=== PATIENT | female | born 1985 | race Caucasian/White ===

== ENCOUNTER → 2019-09-06 | Outpatient (CLI) | payer BC ==
[~2019-09-06] MED LIST: LISD40CA3 PO; SERT50TA9 PO
--- NOTE | 2019-09-06 09:26 | Diagnostic Imaging Report ---
INDICATION: Fall with left ankle and lower left artery pain. Time of exam 9:03 AM 3 views of the left ankle were obtained. Alignment is normal. The ankle mortise is well maintained. Talar dome is smooth. No fracture or dislocation is seen. There is lateral soft tissue swelling. IMPRESSION: Lateral swelling. No acute bony abnormality is detected. Dictated by: Dictated on workstation # [id number]
--- NOTE | 2019-09-06 09:26 | Diagnostic Imaging Report ---
INDICATION: Fall with left leg pain. Time of exam 9:06 AM AP and lateral views of left tibia and fibula were obtained. Alignment at the knee and ankle is normal. Lateral ankle swelling is noted. No fractures are seen. IMPRESSION: No acute bony abnormality is detected. Dictated by: Dictated on workstation # [id number]
== END ==
LOC: RAD 08:44
PROVIDERS: ATTEND Nurse Practitioner Family
DX: M25.472 Effusion, left ankle (principal); M79.605 Pain in left leg; W19.XXXA Unspecified fall, initial encounter
CPT/HCPCS: 73590; 73610

== ENCOUNTER 2020-05-11 09:56 | Emergency (ER) | payer BC ==
[~2020-05-11] VITALS: Ht 170 cm; Wt 146.0 kg
--- NOTE | 2020-05-11 10:05 | ED General ---
General Stated Complaint: SOA;CP Source of Information: Patient Exam Limitations: No Limitations History of Present Illness Date Seen by Provider: May 11, 2020 Time Seen by Provider: 10:10 Initial Comments 35-year-old female presents with left-sided chest pain. She reports that started last week. That she fell over off over the weekend. That the chest pain gets worse with deep breath. That a little bit of discomfort in her neck and her left shoulder. She denies any cough or fever. Maybe some minor shortness of breath. She has no known exposure to COVID. She does not have any nausea or vomiting. She does have a significant family history of early cardiac disease Allergies and Home Medications Allergies Coded Allergies: amoxicillin (Verified Allergy, Unknown, RASH, 11/11/16) Home Medications Lisdexamfetamine Dimesylate 40 Mg Capsule, 40 MG PO DAILY, (Reported) Sertraline HCl 50 Mg Tablet, 50 MG PO DAILY, (Reported) Patient Home Medication List Home Medication List Reviewed: Yes Review of Systems Review of Systems Constitutional: No chills, No dizziness, No fever, No weakness EENTM: no symptoms reported Respiratory: see HPI; No cough Cardiovascular: see HPI, chest pain; No edema, No palpitations Musculoskeletal: no symptoms reported Skin: no symptoms reported Psychiatric/Neurological: No Symptoms Reported Hematologic/Lymphatic: No Symptoms Reported Past Tzuluci-Yihuly-Kqmevx Hx Past Med/Social Hx: Reviewed Nursing Past Med/Soc Hx Patient Social History Former Smoker, Quit: Nov 11, 2006 Recent Hopitalizations: No Seasonal Allergies Seasonal Allergies: Yes Past Medical History ADD/ADHD Family Medical History Heart Disease Physical Exam Vital Signs Vital Signs - First Documented 05/11/20 10:00 Temp 36.7 Pulse 103 Resp 25 B/P (MAP) 146/86 (106) Pulse Ox 98 O2 Delivery Room Air Capillary Refill : Height, Weight, BMI Height: 5'7.00" Weight: 239lbs. 0.0oz. 108.014676ld; 37.4 BMI Method:Stated General Appearance: No Apparent Distress, WD/WN Neck: Non Tender, Supple Respiratory: Lungs Clear, Normal Breath Sounds Cardiovascular: Regular Rate, Rhythm, Tachycardia (mild tachycardia) Gastrointestinal: Non Tender, Soft Extremity: Normal Capillary Refill, Normal Range of Motion Neurologic/Psychiatric: Alert, Oriented x3, Normal Mood/Affect, mental health practitioner II-XII Norm as Tested Skin: Normal Color, Warm/Dry Progress/Results/Core Measures Suspected Sepsis SIRS Temperature: Pulse: Respiratory Rate: Laboratory Tests 05/11/20 10:30: White Blood Count 7.2 Blood Pressure / Mean: Laboratory Tests 05/11/20 10:30: Creatinine 0.80, INR Comment 0.9, Platelet Count 214, Total Bilirubin 0.4 Results/Orders Lab Results Laboratory Tests Test 05/11/20 10:30 Range/Units White Blood Count 7.2 4.3-11.0 10^3/uL Red Blood Count 4.67 4.35-5.85 10^6/uL Hemoglobin 13.0 11.5-16.0 G/DL Hematocrit 39 35-52 % Mean Corpuscular Volume 83 80-99 FL Mean Corpuscular Hemoglobin 28 25-34 PG Mean Corpuscular Hemoglobin Concent 34 32-36 G/DL Red Cell Distribution Width 13.7 10.0-14.5 % Platelet Count 214 130-400 10^3/uL Mean Platelet Volume 10.0 7.4-10.4 FL Neutrophils (%) (Auto) 64 42-75 % Lymphocytes (%) (Auto) 26 12-44 % Monocytes (%) (Auto) 7 0-12 % Eosinophils (%) (Auto) 2 0-10 % Basophils (%) (Auto) 0 0-10 % Neutrophils # (Auto) 4.7 1.8-7.8 X 10^3 Lymphocytes # (Auto) 1.9 1.0-4.0 X 10^3 Monocytes # (Auto) 0.5 0.0-1.0 X 10^3 Eosinophils # (Auto) 0.2 0.0-0.3 10^3/uL Basophils # (Auto) 0.0 0.0-0.1 10^3/uL Prothrombin Time 12.3 12.2-14.7 SEC INR Comment 0.9 0.8-1.4 Activated Partial Thromboplast Time 23 L 24-35 SEC D-Dimer 0.34 0.00-0.49 UG/ML Sodium Level 136 135-145 MMOL/L Potassium Level 4.1 3.6-5.0 MMOL/L Chloride Level 104 98-107 MMOL/L Carbon Dioxide Level 23 21-32 MMOL/L Anion Gap 9 5-14 MMOL/L Blood Urea Nitrogen 11 7-18 MG/DL Creatinine 0.80 0.60-1.30 MG/DL Estimat Glomerular Filtration Rate > 60 BUN/Creatinine Ratio 14 Glucose Level 93 70-105 MG/DL Calcium Level 8.6 8.5-10.1 MG/DL Corrected Calcium 8.4 L 8.5-10.1 MG/DL Magnesium Level 2.0 1.6-2.4 MG/DL Total Bilirubin 0.4 0.1-1.0 MG/DL Aspartate Amino Transf (AST/SGOT) 18 5-34 U/L Alanine Aminotransferase (ALT/SGPT) 23 0-55 U/L Alkaline Phosphatase 86 40-136 U/L Myoglobin 18.9 10.0-92.0 NG/ML Troponin I < 0.028 <0.028 NG/ML B-Type Natriuretic Peptide 15.3 <100.0 PG/ML Total Protein 7.9 6.4-8.2 GM/DL Albumin 4.3 3.2-4.5 GM/DL My Orders Orders - PARHAM,DANNA L DO Cbc With Automated Diff (05/11/20 10:25) Magnesium (05/11/20 10:25) Chest 1 View, Ap/Pa Only (05/11/20 10:25) Ekg Tracing (05/11/20 10:25) Comprehensive Metabolic Panel (05/11/20 10:25) Myoglobin Serum (05/11/20 10:25) Protime With Inr (05/11/20 10:25) Partial Thromboplastin Time (05/11/20 10:25) O2 (05/11/20 10:25) Monitor-Rhythm Ecg Trace Only (05/11/20 10:25) Ed Iv/Invasive Line Start (05/11/20 10:25) BNP (05/11/20 10:25) Troponin I (05/11/20 10:25) Aspirin Chewable Tablet (Baby Aspirin Ch (05/11/20 10:30) Fibrin Degradation Products (05/11/20 10:30) Medications Given in ED Current Medications Medications Dose Ordered Sig/Geo Route Start Time Stop Time Status Last Admin Dose Admin Aspirin 324 mg ONCE ONCE PO 05/11/20 10:30 05/11/20 10:31 DC 05/11/20 11:22 324 MG Vital Signs/I&O 6/05/11/20 05/11/20 05/11/20 10:00 10:00 10:30 11:00 Temp 36.7 Pulse 103 90 94 Resp 25 18 19 B/P (MAP) 146/86 (106) 134/84 (101) 131/77 (95) Pulse Ox 98 99 O2 Delivery Room Air 05/11/20 05/11/20 05/11/20 12:00 12:15 12:25 Pulse 83 89 89 Resp 18 B/P (MAP) 147/94 (111) 134/87 (103) 134/87 (106) Pulse Ox 99 99 98 O2 Delivery Room Air Capillary Refill : Progress Note : Progress Note Patient with no acute findings on EKG, x-rays or labs. Patient chest pain is been there for at least 3 days with negative EKG and negative troponins a very unlikely it is cardiac in nature. It does seem very pleuritic in nature with worsening of deep breath. I discussed her use of ibuprofen with possible some underlying viral illness. She should return to the ER if symptoms significantly worsen or follow-up with her primary care provider in 3-4 days if no improvement. Patient is discharged home in stable condition. ECG Initial ECG Impression Date: May 11, 2020 Initial ECG Impression Time: 10:38 Initial ECG Rate: 101 Initial ECG Rhythm: S.Tach Initial ECG Intervals: Normal Initial ECG Impression: Normal Departure Impression Primary Impression: Chest pain, pleuritic Disposition: 01 HOME, SELF-CARE Condition: Stable Departure-Patient Inst. Referrals: JOAN CATES DO (PCP/Family) Primary Care Physician Patient Instructions: Chest Pain, Chest Pain That Is Not Caused by the Heart (DC), Pleuritic Chest Pain Add. Discharge Instructions: Ibuprofen 600- 800 mg every 6 hours as needed Follow-up with your primary care provider if no improvement in the next 3-4 days. Return the ER if symptoms significantly worsen DANNA PARHAM DO May 11, 2020 10:05
[2020-05-11 10:30] VITALS: BP 134/84
[2020-05-11] MEDS ORDERED: ASPIRIN 81 MG CHEW (CHILDREN'S ASA) PO ONE (10:30)
[2020-05-11 10:44] LABS: BASOPHILS % (AUTO) 0 % (0-10); EOSINOPHILS # (AUTO) 0.2 10^3/uL (0.0-0.3); EOSINOPHILS % (AUTO) 2 % (0-10); HEMATOCRIT 39 % (35-52); LYMPHOCYTES # (AUTO) 1.9 X 10^3 (1.0-4.0); LYMPHOCYTES % (AUTO) 26 % (12-44); MEAN CORPUSCULAR HEMOGLOBIN 28 PG (25-34); MEAN CORPUSCULAR HGB CONC 34 G/DL (32-36); MEAN CORPUSCULAR VOLUME 83 FL (80-99); MONOCYTES # (AUTO) 0.5 X 10^3 (0.0-1.0); MONOCYTES % (AUTO) 7 % (0-12); NEUTROPHILS # (AUTO) 4.7 X 10^3 (1.8-7.8); NEUTROPHILS % (AUTO) 64 % (42-75); PLATELET COUNT 214 10^3/uL (130-400); RED CELL DISTRIBUTION WIDTH 13.7 % (10.0-14.5); WHITE BLOOD COUNT 7.2 10^3/uL (4.3-11.0)
[2020-05-11 10:56] LABS: ALBUMIN 4.3 GM/DL (3.2-4.5); CHLORIDE 104 MMOL/L (98-107); POTASSIUM 4.1 MMOL/L (3.6-5.0); SODIUM 136 MMOL/L (135-145)
[2020-05-11 10:58] LABS: CALCIUM 8.6 MG/DL (8.5-10.1)
[2020-05-11 10:59] LABS: GLUCOSE 93 MG/DL (70-105); TOTAL PROTEIN 7.9 GM/DL (6.4-8.2)
[2020-05-11 11:00] VITALS: BP 131/77
[2020-05-11 11:00] LABS: CARBON DIOXIDE 23 MMOL/L (21-32)
[2020-05-11 11:01] LABS: BILIRUBIN,TOTAL 0.4 MG/DL (0.1-1.0); FIBRIN DEGRADATION PRODUCTS 0.34 UG/ML (0.00-0.49); INR 0.9 (0.8-1.4); PROTHROMBIN TIME PATIENT 12.3 SEC (12.2-14.7)
[2020-05-11 11:02] LABS: ALKALINE PHOSPHATASE 86 U/L (40-136); GFR ESTIMATED > 60
[2020-05-11 11:04] LABS: BUN/CREATININE RATIO 14
[2020-05-11 11:05] LABS: ALANINE AMINOTRANSFERASE 23 U/L (0-55)
[2020-05-11 12:00] VITALS: BP 147/94
--- NOTE | 2020-05-11 12:14 | Diagnostic Imaging Report ---
EXAMINATION: Chest, 1 view. HISTORY: Shortness of breath. COMPARISON: None available. FINDINGS: The right hemidiaphragm is elevated. There is mild right base atelectasis. There is no pleural effusion or pneumothorax. The heart size is normal. IMPRESSION: Elevated right hemidiaphragm with mild right base atelectasis. Dictated by: Dictated on workstation # [id number]
[2020-05-11 12:15] VITALS: BP 134/87
[2020-05-11 12:25] VITALS: BP 134/87
== END 2020-05-11 12:15 | disposition home or self-care (01) ==
LOC: EDUNIT# 09:56 → ER 09:58
DX: R07.2 Precordial pain (principal); F90.9 Attention-deficit hyperactivity disorder, unspecified type; Z88.1 Allergy status to other antibiotic agents; Z87.891 Personal history of nicotine dependence; Z82.49 Family history of ischemic heart disease and other diseases of the circulatory system
CPT/HCPCS: 36415; 71045; 80053; 83735; 83874; 83880; 84484; 85025; 85379; 85610; 85730; 93005; 93041

== ENCOUNTER → 2020-08-21 | Outpatient (CLI) | payer BC ==
[~2020-08-21] MED LIST changes: +BARIUM for suspension 96% w/w (Vanilla Silq Medium Density) PO ONE; +BARIUM for suspension 98% w/w (Vanilla Silq High Density) PO ONE
--- NOTE | 2020-08-21 12:02 | Diagnostic Imaging Report ---
INDICATION: Dysphagia. Patient ingested effervescent crystals as well as thin and thick barium and imaging of esophagus was performed. A total of 53 seconds of fluoroscopic time was utilized. The preliminary radiograph of the chest is unremarkable. The esophagus has a smooth contour. No mass or stricture is identified. No hiatal hernia is identified. There was very mild gastroesophageal reflux demonstrated. Limited images of the stomach are unremarkable. IMPRESSION: Unremarkable esophagram apart from very mild gastroesophageal reflux. Dictated by: Dictated on workstation # [id number]
== END ==
LOC: RAD 11:00
PROVIDERS: ATTEND Surgery
DX: R13.10 Dysphagia, unspecified (principal)
CPT/HCPCS: 74220

== ENCOUNTER → 2020-08-28 | Outpatient (CLI) | payer BC ==
[~2020-08-28] MED LIST changes: -BARIUM for suspension 96% w/w (Vanilla Silq Medium Density) PO ONE; -BARIUM for suspension 98% w/w (Vanilla Silq High Density) PO ONE
== END ==
LOC: LABNPT 09:04
PROVIDERS: ATTEND Family Medicine
DX: J06.9 Acute upper respiratory infection, unspecified (principal); Z20.828 Contact with and (suspected) exposure to other viral communicable diseases
CPT/HCPCS: 87635

== ENCOUNTER 2020-09-11 05:35 | Outpatient (RCR) | payer BC ==
[~2020-09-11] VITALS: Ht 172.7 cm; Wt 154.5 kg
[~2020-09-11 05:35] MED LIST changes: +PANT40TA52 PO
== END 2020-09-11 13:04 | disposition home or self-care (01) ==
LOC: PREOP 05:35
PROVIDERS: ATTEND Surgery
DX: K21.9 Gastro-esophageal reflux disease without esophagitis (principal); Z20.828 Contact with and (suspected) exposure to other viral communicable diseases
CPT/HCPCS: 87635

== ENCOUNTER 2020-09-15 09:17 | Day surgery (SDC) | payer BC ==
[~2020-09-15] VITALS: Ht 172 cm; Wt 154.0 kg
[2020-09-15] MEDS ORDERED: LACTATED RINGERS 1,000 ML IV STA (09:18)
[2020-09-15] MEDS ORDERED: LACTATED RINGERS 1,000 ML IV ONE (09:19)
[2020-09-15] MEDS ORDERED: HURRICAINE EXT TUBE (BENZOCAINE) XX PRN (09:30)
[2020-09-15 09:36] VITALS: BP 155/95
--- NOTE | 2020-09-15 09:54 | Progress Note-Pre Operative ---
Pre-Operative Progress Note H&P Reviewed The H&P was reviewed, patient examined and no changes noted. Date Seen by Provider: Sep 15, 2020 Time Seen by Provider: 09:54 Date H&P Reviewed: Sep 15, 2020 Time H&P Reviewed: 09:54 Pre-Operative Diagnosis: dysphagia, gerd MARY ESTRELLA DO Sep 15, 2020 09:54
[2020-09-15] MEDS ORDERED: proPOfol 200 MG/20 ML (DIPRIVAN) VIAL IV ONE ×2 (10:23→10:37)
[2020-09-15] MEDS ORDERED: MIDAZOLAM 2 MG/2 ML (VERSED) VIAL ONE (10:23)
[2020-09-15] MEDS ORDERED: HURRICAINE EXT TUBE (BENZOCAINE) ONE (10:33)
[2020-09-15 10:45] VITALS: BP 104/56
--- NOTE | 2020-09-15 10:45 | Discharge Inst-Simple/Standard ---
Discharge Inst-Standard Patient Instructions/Follow Up Plan of Care/Instructions/FU: 2 weeks Pooja Activity as Tolerated: Yes Discharge Diet: Regular Diet MARY ESTRELLA DO Sep 15, 2020 10:45
--- NOTE | 2020-09-15 10:49 | Progress Note-Post Operative ---
Post-Operative Progess Note Surgeon (s)/Radial Arm Saw Operator (s) Surgeon MARY ESTRELLA DO Radial Arm Saw Operator: na Pre-Operative Diagnosis dysphagia, gerd Post-Operative Diagnosis mild reflux esophagitis Procedure & Operative Findings Date of Procedure 09/15/20 Procedure Performed/Findings egd c biopsies Anesthesia Type per military technology manager Estimated Blood Loss Estimated blood loss (mL): scant Specimens/Packing Specimens Removed antrum, ge MARY ESTRELLA DO Sep 15, 2020 10:49
[2020-09-15 10:50] VITALS: BP 104/62
[2020-09-15 10:54] VITALS: BP 105/59
[2020-09-15 10:55] VITALS: BP 105/65
[2020-09-15 11:16] VITALS: BP 107/73
--- NOTE | 2020-09-15 19:10 | OPERATIVE REPORT ---
DATE OF SERVICE: 09/15/2020 PREOPERATIVE DIAGNOSES: Dysphagia and GERD. POSTOPERATIVE DIAGNOSIS: Mild reflux esophagitis. PROCEDURE PERFORMED: EGD with biopsies. SURGEON: Mary Patton DO ANESTHESIA: Per INVENTORY CONTROL MANAGER. ESTIMATED BLOOD LOSS: Scant. COMPLICATIONS: None. SPECIMENS: Biopsy of the antrum and GE junction. INDICATIONS FOR PROCEDURE: The patient is a 35-year-old female with GERD symptoms and dysphagia. She understands the risks and benefits of the procedure and wished to proceed with the procedure. Consent was signed in the chart. DESCRIPTION OF PROCEDURE: The patient was taken to the endoscopy suite and placed in a left lateral recumbent position. Timeout was performed. Scope was inserted in the mouth, down the esophagus, stomach and into the duodenum without difficulty. There were no polyps, masses or ulcerations within the duodenum. Scope was slowly retracted back into the stomach, where it was further insufflated. No polyps, masses or ulcerations. Scope was retroflexed noting no other pathology. Biopsy of the antrum was obtained. Scope was then slowly retracted back to the distal esophagus. No polyps, masses or ulcerations. some slight erythematous changes consistent with mild reflux esophagitis. Biopsies of the GE junction were obtained. Scope was then slowly retracted back until completely removed. The patient tolerated procedure well without any complications. She was taken to the recovery room in a stable condition. RECOMMENDATIONS: The patient will follow up in the office in two to three weeks. Await biopsy results. Continue on current medications. Job ID: [id number] DocumentID: [id number] Dictated Date: 09/15/2020 10:50:54 Yardage Estimator Date: 09/15/2020 19:09:14 Dictated By: MARY PATTON DO
--- NOTE | 2020-09-16 12:54 | Anesthesia-General Post-Op ---
MAC Significant Intra-Op Events Notes Post op yesterday no complications Patient Condition Mental Status/LOC: Same as Preop Cardiovascular: Satisfactory Nausea/Vomiting: Absent Respiratory: Satisfactory Pain: Controlled Complications: Absent Post Op Complications Complications None Follow Up Care/Instructions Patient Instructions None needed. Anesthesiology Discharge Order Discharge Order Patient is doing well, no complaints, stable vital signs, no apparent adverse anesthesia problems. No complications reported per nursing. BOWEN RIVERA CRNA Sep 16, 2020 12:54
== END 2020-09-15 11:25 | disposition home or self-care (01) ==
LOC: ENDO 09:17
PROVIDERS: ATTEND Surgery
DX: K21.00 Gastro-esophageal reflux disease with esophagitis, without bleeding (principal); E66.01 Morbid (severe) obesity due to excess calories; Z79.899 Other long term (current) drug therapy; Z68.43 Body mass index [BMI] 50.0-59.9, adult; Z88.0 Allergy status to penicillin; Z88.1 Allergy status to other antibiotic agents

== ENCOUNTER → 2020-12-08 | Outpatient (CLI) | payer BC ==
--- NOTE | 2020-12-09 09:34 | NUR ---
Notified of positive COVID test.
== END ==
LOC: LABNPT 05:21
PROVIDERS: ATTEND Family Medicine
DX: U07.1 COVID-19 (principal)
CPT/HCPCS: 87635

== ENCOUNTER 2020-12-11 15:18 | Inpatient (IN) | payer BC, OTHER ==
[~2020-12-11] VITALS: Ht 170 cm; Wt 154.6 kg
[~2020-12-11 15:18] MED LIST changes: -ACET325T38 PO; -BAMLANIVIMAB (NON FORM) 700 MG in NS (IVPB) 250 ML IV ONE; -EPINEPHrine INJECTION 1 MG/ML AMP IM PRN; -PRD20T PO; -RT-ALBUINH INH; -diphenhydrAMINE 50 MG/ML INJ (BENADRYL) IV PRN
--- NOTE | 2020-12-11 15:28 | ED Cough/URI ---
General Chief Complaint: Respiratory Problems Stated Complaint: COVID POSITIVE, HYPOXIA Source: patient Exam Limitations: no limitations History of Present Illness Date Seen by Provider: Dec 11, 2020 Time Seen by Provider: 15:23 Initial Comments To ER from outpatient surgery center with reports of hypoxia and dyspnea while receiving Bamlanivimab infusion. She is on day 10 of Covid illness with a BMI of 53. On arrival to ER oxygen saturation varies between 89 and 87% on room air. Timing/Duration: just prior to arrival Prior Episodes/Possible Cause: no prior episodes Associated Symptoms: denies symptoms Allergies and Home Medications Allergies Coded Allergies: amoxicillin (Verified Allergy, Unknown, RASH, 11/11/16) Home Medications Lisdexamfetamine Dimesylate 40 Mg Capsule, 40 MG PO DAILY, (Reported) Pantoprazole Sodium 40 Mg Tablet.dr, 40 MG PO DAILY, (Reported) Patient Home Medication List Home Medication List Reviewed: Yes Review of Systems Review of Systems Constitutional: see HPI; No chills, No fever EENTM: see HPI Respiratory: see HPI, cough, short of breath Cardiovascular: no symptoms reported Genitourinary: no symptoms reported Musculoskeletal: no symptoms reported Skin: no symptoms reported Psychiatric/Neurological: No Symptoms Reported Hematologic/Lymphatic: No Symptoms Reported Past Kpkbgwe-Nmilyq-Auhcru Hx Patient Social History Former Smoker, Quit: Nov 11, 2006 Recent Hopitalizations: No Immunizations Up To Date PED Vaccines UTD: No Seasonal Allergies Seasonal Allergies: Yes Past Medical History Surgeries: No Respiratory: No Cardiac: No Neurological: No Genitourinary: No Gastrointestinal: Yes (dysphagia) Gastroesophageal Reflux Musculoskeletal: No Endocrine: No HEENT: No Cancer: No Psychosocial: Yes ADD/ADHD Integumentary: No Blood Disorders: No Family Medical History Heart Disease Physical Exam Vital Signs - First Documented 12/11/20 15:22 Temp 38.3 Pulse 100 Resp 18 B/P (MAP) 133/89 (104) Pulse Ox 89 O2 Delivery Room Air Capillary Refill : Height: 5'7.00" Weight: 239lbs. 0.0oz. 108.455559ak; 52.05 BMI Method:Stated General Appearance: WD/WN, no apparent distress, obese Eyes: Bilateral Eye Normal Inspection, Bilateral Eye PERRL, Bilateral Eye EOMI Neck: non-tender, full range of motion Respiratory: normal breath sounds, no respiratory distress, no accessory muscle use Gastrointestinal: normal bowel sounds, non tender, soft Neurologic/Psychiatric: alert, normal mood/affect, oriented x 3 Skin: normal color, warm/dry Progress/Results/Core Measures Suspected Sepsis SIRS Temperature: Pulse: Respiratory Rate: Laboratory Tests 12/11/20 15:20: White Blood Count 5.6 Blood Pressure / Mean: Laboratory Tests 12/11/20 15:20: Creatinine 0.81, Platelet Count 154, Total Bilirubin 0.4 Results/Orders Lab Results Laboratory Tests Test 12/11/20 15:20 Range/Units White Blood Count 5.6 4.3-11.0 10^3/uL Red Blood Count 4.59 3.80-5.11 10^6/uL Hemoglobin 12.8 11.5-16.0 g/dL Hematocrit 38 35-52 % Mean Corpuscular Volume 83 80-99 fL Mean Corpuscular Hemoglobin 28 25-34 pg Mean Corpuscular Hemoglobin Concent 34 32-36 g/dL Red Cell Distribution Width 12.4 10.0-14.5 % Platelet Count 154 130-400 10^3/uL Mean Platelet Volume 10.4 9.0-12.2 fL Immature Granulocyte % (Auto) 0 % Neutrophils (%) (Auto) 74 42-75 % Lymphocytes (%) (Auto) 19 12-44 % Monocytes (%) (Auto) 7 0-12 % Eosinophils (%) (Auto) 0 0-10 % Basophils (%) (Auto) 0 0-10 % Neutrophils # (Auto) 4.2 1.8-7.8 10^3/uL Lymphocytes # (Auto) 1.1 1.0-4.0 10^3/uL Monocytes # (Auto) 0.4 0.0-1.0 10^3/uL Eosinophils # (Auto) 0.0 0.0-0.3 10^3/uL Basophils # (Auto) 0.0 0.0-0.1 10^3/uL Immature Granulocyte # (Auto) 0.0 0.0-0.1 10^3/uL D-Dimer 0.67 H 0.00-0.49 UG/ML Sodium Level 141 135-145 MMOL/L Potassium Level 3.3 L 3.6-5.0 MMOL/L Chloride Level 105 98-107 MMOL/L Carbon Dioxide Level 23 21-32 MMOL/L Anion Gap 13 5-14 MMOL/L Blood Urea Nitrogen 12 7-18 MG/DL Creatinine 0.81 0.60-1.30 MG/DL Estimat Glomerular Filtration Rate > 60 BUN/Creatinine Ratio 15 Glucose Level 95 70-105 MG/DL Calcium Level 9.2 8.5-10.1 MG/DL Corrected Calcium 9.0 8.5-10.1 MG/DL Total Bilirubin 0.4 0.1-1.0 MG/DL Aspartate Amino Transf (AST/SGOT) 20 5-34 U/L Alanine Aminotransferase (ALT/SGPT) 20 0-55 U/L Alkaline Phosphatase 51 40-136 U/L C-Reactive Protein High Sensitivity 4.43 H 0.00-0.50 MG/DL Total Protein 8.3 H 6.4-8.2 GM/DL Albumin 4.3 3.2-4.5 GM/DL Procalcitonin 0.02 <0.10 NG/ML Serum Test, Qualitative NEGATIVE NEGATIVE My Orders Orders - JANNIE GALDAMEZ APRN Cbc With Automated Diff (12/11/20 15:21) Comprehensive Metabolic Panel (12/11/20 15:21) Hs C Reactive Protein (12/11/20 15:21) Fibrin Degradation Products (12/11/20 15:21) Chest 1 View, Ap/Pa Only (12/11/20 15:21) Procalcitonin (Pct) (12/11/20 15:21) Ed Iv/Invasive Line Start (12/11/20 15:21) Hcg,Qualitative Serum (12/11/20 15:22) Ct Angio Chest W (12/11/20 16:05) Iohexol Injection (Omnipaque 350 Mg/Ml 1 (12/11/20 16:15) Received Contrast (Hold Metformin- Contr (12/11/20 16:15) Sodium Chloride Flush (Catheter Flush Sy (12/11/20 16:15) Ns (Ivpb) (Sodium Chloride 0.9% Ivpb Bag (12/11/20 16:15) Vital Signs/I&O 12/11/20 15:22 Temp 38.3 Pulse 100 Resp 18 B/P (MAP) 133/89 (104) Pulse Ox 89 O2 Delivery Room Air Capillary Refill : Departure Communication (Admissions) Time/Spoke to Admitting Phy: 16:27 Oxygen saturation 87 to 89% on room air here. It increases to 97 to 99% on only 2 L of supplemental oxygen. Impression Primary Impression: Hypoxia Additional Impression: COVID-19 Disposition: 09 ADMITTED INPATIENT Condition: Stable Admissions Decision to Admit Reason: Admit from ER (General) Decision to Admit/Date: Dec 11, 2020 Time/Decision to Admit Time: 16:27 Departure-Patient Inst. Referrals: JOAN CATES DO (PCP/Family) Primary Care Physician JANNIE GALDAMEZ APRN Dec 11, 2020 15:28
--- NOTE | 2020-12-11 15:39 | Diagnostic Imaging Report ---
EXAMINATION: Chest 1 view HISTORY: Hypoxia, COVID positive. COMPARISON: Chest radiograph from 05/11/2020. FINDINGS: Heart size and pulmonary vasculature are normal. Low lung volumes with patchy interstitial opacities seen within both lungs. No pleural effusion or pneumothorax. The osseous structures are intact. IMPRESSION: 1. Patchy interstitial opacities and low lung volumes, compatible with atypical infection and history of COVID-19. Dictated by: Dictated on workstation # [id number]
[2020-12-11 15:43] LABS: BASOPHILS % (AUTO) 0 % (0-10); EOSINOPHILS % (AUTO) 0 % (0-10); HEMATOCRIT 38 % (35-52); HEMOGLOBIN 12.8 g/dL (11.5-16.0); LYMPHOCYTES # (AUTO) 1.1 10^3/uL (1.0-4.0); LYMPHOCYTES % (AUTO) 19 % (12-44); MEAN CORPUSCULAR HEMOGLOBIN 28 pg (25-34); MEAN CORPUSCULAR HGB CONC 34 g/dL (32-36); MEAN CORPUSCULAR VOLUME 83 fL (80-99); MEAN PLATELET VOLUME 10.4 fL (9.0-12.2); MONOCYTES # (AUTO) 0.4 10^3/uL (0.0-1.0); MONOCYTES % (AUTO) 7 % (0-12); NEUTROPHILS # (AUTO) 4.2 10^3/uL (1.8-7.8); NEUTROPHILS % (AUTO) 74 % (42-75); PLATELET COUNT 154 10^3/uL (130-400); WHITE BLOOD COUNT 5.6 10^3/uL (4.3-11.0)
[2020-12-11 15:53] LABS: ALBUMIN 4.3 GM/DL (3.2-4.5); CHLORIDE 105 MMOL/L (98-107); POTASSIUM 3.3 MMOL/L (3.6-5.0); SODIUM 141 MMOL/L (135-145)
[2020-12-11 15:54] LABS: CALCIUM 9.2 MG/DL (8.5-10.1)
[2020-12-11 15:55] LABS: GLUCOSE 95 MG/DL (70-105); TOTAL PROTEIN 8.3 GM/DL (6.4-8.2)
[2020-12-11 15:57] LABS: BILIRUBIN,TOTAL 0.4 MG/DL (0.1-1.0); CARBON DIOXIDE 23 MMOL/L (21-32)
[2020-12-11 15:59] LABS: ALKALINE PHOSPHATASE 51 U/L (40-136); CREATININE SERUM 0.81 MG/DL (0.60-1.30); GFR ESTIMATED > 60
[2020-12-11 16:00] LABS: BUN/CREATININE RATIO 15
[2020-12-11 16:02] LABS: ALANINE AMINOTRANSFERASE 20 U/L (0-55)
[2020-12-11] MEDS ORDERED: IOHEXOL 350 MG/ML 100 ML (OMNIPAQUE 350) VIAL IV ONE (16:15)
[2020-12-11] MEDS ORDERED: CATHETER FLUSH 10 ML SYR IV PRN ×2 (16:15→18:45)
[2020-12-11] MEDS ORDERED: NS 100 ML (IVPB) BAG IV ONE (16:15)
[2020-12-11] MEDS ORDERED: HOLD METFORMIN - RECEIVED CONTRAST 20 ML VIAL IV SCH (16:15)
--- NOTE | 2020-12-11 16:48 | Diagnostic Imaging Report ---
EXAMINATION: CT angiography of the chest. TECHNIQUE: Contrast enhanced thin section helical images were obtained through the chest with intravenous contrast timed for the optimal opacification of the arterial structures per CTA protocol. Post-processing, reconstructions and interpretation of angiographic images of the vessels was performed. 3D MIP reconstructions were performed and reviewed. All CT scans use one or more of the following dose optimizing techniques: automated exposure control, MA and/or KvP adjustment based on a patient size and exam type, or iterative reconstruction. HISTORY: Shortness of breath, COVID positive. COMPARISON: None available. FINDINGS: Vascular: No filling defects within the pulmonary arteries. Thoracic aorta is normal in caliber. Thyroid: The thyroid is normal. Mediastinum: Heart size is normal without significant pericardial effusion. No suspicious lymphadenopathy. Lungs and airways: Patchy groundglass opacities throughout both lungs. No pleural effusion or pneumothorax. The airways are normal. Upper abdomen: The subphrenic structures are normal. Musculoskeletal: No suspicious osseous lesion or compression fracture. IMPRESSION: 1. No findings of pulmonary embolus. 2. Patchy groundglass opacities throughout both lungs compatible with history of COVID-19 pneumonia. Dictated by: Dictated on workstation # [id number]
[2020-12-11 18:21] VITALS: BP 132/78
[2020-12-11] MEDS ORDERED: polyethylene glycoL POWDER 17 GM (MIRALAX) PACK PO PRN (18:30)
[2020-12-11] MEDS ORDERED: ANTACID SUSP 30 ML UDC (MYLANTA) PO PRN (18:30)
[2020-12-11] MEDS ORDERED: ONDANSETRON 4 MG (ZOFRAN) ORAL DISSOLVE TAB PO PRN (18:30)
[2020-12-11] MEDS: ACETAMINOPHEN 325 MG TABLET PO PRN (18:41)
[2020-12-11] MEDS: ENOXAPARIN 60 MG/0.6 ML (LOVENOX) SYR SC SCH (20:37)
[2020-12-11] MEDS: CATHETER FLUSH 10 ML SYR IV SCH (20:38)
[2020-12-11 20:55] VITALS: BP 162/80
[2020-12-11] MEDS ORDERED: inSUlin ASPART (NovoLOG) 1 UNIT/0.01 ML (CHARGE PER UNIT) SC SCH (21:00)
[2020-12-11] MEDS: SENNOSIDES 8.6 MG (SENOKOT) TAB PO SCH (21:27)
[2020-12-11] MEDS: DOCUSATE SODIUM 100 MG (COLACE) CAP PO SCH (21:27)
[2020-12-11] MEDS: inSUlin ASPART (NovoLOG) 1 UNIT/0.01 ML (CHARGE PER UNIT) SC SCH (21:27)
[2020-12-11 21:52] VITALS: BP 133/89
[2020-12-11 21:59] VITALS: BP 133/89
[2020-12-11] MEDS ORDERED: RT-ALBUTEROL INHALER HFA (VENTOLIN HFA) 18 GM IH PRN (23:30)
[2020-12-11 23:54] VITALS: BP 158/78
[2020-12-12 03:06] VITALS: BP 128/68
[2020-12-12] MEDS: ONDANSETRON 4 MG/2 ML (SDV) Z0FRAN IV PRN (05:13)
[2020-12-12] MEDS: CATHETER FLUSH 10 ML SYR IV SCH ×3 (05:38→22:10)
[2020-12-12] MEDS: inSUlin ASPART (NovoLOG) 1 UNIT/0.01 ML (CHARGE PER UNIT) SC SCH ×4 (05:38→21:08)
[2020-12-12 08:04] VITALS: BP 123/67
[2020-12-12] MEDS: ENOXAPARIN 60 MG/0.6 ML (LOVENOX) SYR SC SCH ×2 (08:38→20:09)
[2020-12-12] MEDS: DOCUSATE SODIUM 100 MG (COLACE) CAP PO SCH ×2 (08:38→20:09)
[2020-12-12] MEDS: dexAMETHasone 6 MG TAB (DECADRON) PO SCH (08:38)
[2020-12-12] MEDS: PANTOPRAZOLE 40 MG (PROTONIX) TAB PO SCH (08:38)
[2020-12-12] MEDS: SENNOSIDES 8.6 MG (SENOKOT) TAB PO SCH ×2 (08:39→20:09)
[2020-12-12] MEDS ORDERED: PHARMACY TO DOSE SQ SCH (09:00)
[2020-12-12 11:00] VITALS: BP 137/79
--- NOTE | 2020-12-12 12:40 | History & Physical-Hospitalist ---
History of Present Illness HPI/Chief Complaint Susan Sullivan is a 35-year-old female with super obesity who presented with shortness of breath. Her symptoms began 10 days ago. She was diagnosed with COVID-19 as an outpatient. She received a Bamlanivimab infusion on the day of her arrival. After the infusion she was short of breath and presented to the emergency room. She reports that she has had a cough. She has not noticed any fevers. She has had some loss of taste and smell. She has still been eating and drinking. She has had some diarrhea. She reports nausea but no vomiting. She has a headache. She denies chest pain. She denies abdominal pain. She blanco not had any leg pain or swelling. Source: patient Exam Limitations: no limitations Date Seen 12/12/20 Time Seen by a Provider: 10:10 Attending Physician Jeaneth Freedman MD PCP Zoya Friend DO Referring Physician Date of Admission Dec 11, 2020 at 16:21 Home Medications & Allergies Home Medications Reviewed patient Home Medication Reconciliation performed by pharmacy medication reconciliations optometric technician and/or nursing. Patients Allergies have been reviewed. Allergies Allergies Coded Allergies amoxicillin (Verified Allergy, Unknown, RASH, 11/11/16) Past Wuzsgaa-Ltbadd-Nptizs Hx Past Med/Social Hx: Reviewed Nursing Past Med/Soc Hx Patient Social History Smoking Status: Never a Smoker Former Smoker, Quit: Nov 11, 2006 Recent Foreign Travel: No Contact w/other who traveled: No Recent Hopitalizations: No Recent Infectious Disease Expo: No Immunizations Up To Date Pediatric: No Seasonal Allergies Seasonal Allergies: Yes Past Medical History Gastrointestinal: Gastroesophageal Reflux Psychosocial: ADD/ADHD History of Blood Disorders: No Family History Heart Disease Review of Systems Constitutional: malaise EENTM: no symptoms reported Respiratory: cough, short of breath Cardiovascular: no symptoms reported Gastrointestinal: diarrhea, nausea Genitourinary: no symptoms reported Musculoskeletal: no symptoms reported Skin: no symptoms reported Psychiatric/Neurological: No Symptoms Reported Physical Exam Physical Exam Vital Signs Vital Signs - First Documented 12/11/20 12/11/20 12/11/20 15:22 18:21 21:59 Temp 38.3 Pulse 100 Resp 18 B/P (MAP) 133/89 (104) Pulse Ox 89 O2 Delivery Room Air O2 Flow Rate 2.00 FiO2 21 Capillary Refill : Less Than 3 Seconds Height, Weight, BMI Height: 5'7.00" Weight: 239lbs. 0.0oz. 108.487107st; 53.49 BMI Method:Stated General Appearance: No Apparent Distress, Obese HEENT: PERRL/EOMI, Pharynx Normal Neck: Normal Inspection, Supple Respiratory: No Respiratory Distress, Decreased Breath Sounds Cardiovascular: Regular Rate, Rhythm, No Edema, No Murmur Gastrointestinal: Normal Bowel Sounds, Non Tender, Soft; No Distended Extremity: Normal Inspection, Non Tender, No Pedal Edema Neurologic/Psychiatric: Alert, Oriented x3, No Motor/Sensory Deficits, Normal Mood/Affect Skin: Normal Color, Warm/Dry Results Results/Procedures Labs Laboratory Tests 12/11/20 15:20 Patient resulted labs reviewed. Imaging: Reviewed Imaging Report Assessment/Plan Admission Diagnosis acute respiratory failure due to COVID-19 Admission Status: Inpatient Order (span 2 midnights) Reason for Inpatient Admission: respiratory failure requiring supplemental oxygen Assessment and Plan Acute respiratory failure due to COVID-19 COVID positive outpatient Received Bamlanivimab infusion 12/11 Chest xray with patchy infiltrates consistent with COVID Begin Decadron Begin Remdesivir Supplemental oxygen as needed, currently 1.5 L D-dimer mildly elevated, CT negative for PE Procalcitonin normal, no antibiotics Hypokalemia Monitor and replace as needed Super obesity Clinically significant, no acute management needs DVT prophylaxis: Lovenox Diagnosis/Problems Diagnosis/Problems (1) Acute respiratory failure due to COVID-19 Status: Acute (2) Super obesity Status: Chronic (3) Hypokalemia Status: Acute JEANETH FREEDMAN MD Dec 12, 2020 12:40
[2020-12-12] MEDS ORDERED: KCL 20 MEQ TAB (K-DUR) PO NR (12:45)
[2020-12-12] MEDS ORDERED: REMDESIVIR INJ 200 MG in NS (IVPB) 210 ML IV NR (13:00)
[2020-12-12 15:41] VITALS: BP 131/78
[2020-12-13 00:19] VITALS: BP 139/88
[2020-12-13 06:15] LABS: ALBUMIN 4.1 GM/DL (3.2-4.5); CHLORIDE 107 MMOL/L (98-107); POTASSIUM 3.9 MMOL/L (3.6-5.0); SODIUM 141 MMOL/L (135-145)
[2020-12-13 06:17] LABS: CALCIUM 8.9 MG/DL (8.5-10.1)
[2020-12-13 06:18] LABS: GLUCOSE 113 MG/DL (70-105)
[2020-12-13 06:19] LABS: BASOPHILS % (AUTO) 0 % (0-10); BILIRUBIN,TOTAL 0.4 MG/DL (0.1-1.0); CARBON DIOXIDE 22 MMOL/L (21-32); EOSINOPHILS % (AUTO) 0 % (0-10); HEMATOCRIT 36 % (35-52); HEMOGLOBIN 12.2 g/dL (11.5-16.0); LYMPHOCYTES # (AUTO) 0.9 10^3/uL (1.0-4.0); LYMPHOCYTES % (AUTO) 21 % (12-44); MEAN CORPUSCULAR HEMOGLOBIN 28 pg (25-34); MEAN CORPUSCULAR HGB CONC 34 g/dL (32-36); MEAN CORPUSCULAR VOLUME 83 fL (80-99); MEAN PLATELET VOLUME 10.8 fL (9.0-12.2); MONOCYTES # (AUTO) 0.4 10^3/uL (0.0-1.0); MONOCYTES % (AUTO) 10 % (0-12); NEUTROPHILS # (AUTO) 2.9 10^3/uL (1.8-7.8); NEUTROPHILS % (AUTO) 69 % (42-75); PLATELET COUNT 162 10^3/uL (130-400); WHITE BLOOD COUNT 4.2 10^3/uL (4.3-11.0)
[2020-12-13 06:21] LABS: ALKALINE PHOSPHATASE 46 U/L (40-136); CREATININE SERUM 0.76 MG/DL (0.60-1.30); GFR ESTIMATED > 60
[2020-12-13 06:22] LABS: BUN/CREATININE RATIO 22
[2020-12-13] MEDS: CATHETER FLUSH 10 ML SYR IV SCH ×3 (06:23→22:00)
[2020-12-13] MEDS: inSUlin ASPART (NovoLOG) 1 UNIT/0.01 ML (CHARGE PER UNIT) SC SCH ×4 (06:23→20:41)
[2020-12-13 06:24] LABS: ALANINE AMINOTRANSFERASE 19 U/L (0-55); MAGNESIUM 2.3 MG/DL (1.6-2.4)
[2020-12-13] MEDS: POTASSIUM CL 10MEQ/50ML IVPB 50 ML IV SCH (06:24)
[2020-12-13] MEDS: KCL 20 MEQ TAB (K-DUR) PO SCH (06:24)
[2020-12-13] MEDS: MAGNESIUM 1 GM/100 ML IVPB 100 ML IV SCH (06:25)
[2020-12-13 07:24] VITALS: BP 151/84
[2020-12-13] MEDS: PANTOPRAZOLE 40 MG (PROTONIX) TAB PO SCH (07:55)
[2020-12-13] MEDS: SENNOSIDES 8.6 MG (SENOKOT) TAB PO SCH ×2 (07:55→20:42)
[2020-12-13] MEDS: dexAMETHasone 6 MG TAB (DECADRON) PO SCH (07:55)
[2020-12-13] MEDS: DOCUSATE SODIUM 100 MG (COLACE) CAP PO SCH ×2 (07:55→20:42)
[2020-12-13] MEDS: ENOXAPARIN 60 MG/0.6 ML (LOVENOX) SYR SC SCH ×2 (07:56→20:42)
[2020-12-13] MEDS: REMDESIVIR INJ 100 MG in NS (IVPB) 230 ML IV SCH (12:14)
--- NOTE | 2020-12-13 12:25 | Progress Note - Hospitalist ---
Subjective HPI/CC On Admission Date Seen by Provider: Dec 13, 2020 Time Seen by Provider: 11:10 Susan Sullivan is a 35-year-old female with super obesity who presented with shortness of breath. Her symptoms began 10 days ago. She was diagnosed with COVID-19 as an outpatient. She received a Bamlanivimab infusion on the day of her arrival. After the infusion she was short of breath and presented to the emergency room. She reports that she has had a cough. She has not noticed any fevers. She has had some loss of taste and smell. She has still been eating and drinking. She has had some diarrhea. She reports nausea but no vomiting. She has a headache. She denies chest pain. She denies abdominal pain. She blanco not had any leg pain or swelling. Subjective/Events-last exam She did not sleep well last night. She thinks she might be feeling a little bit better. She still feels short of breath but feels better with the oxygen on. Objective Exam Vital Signs Vital Signs Date Time Temp Pulse Resp B/P (MAP) Pulse Ox O2 Delivery O2 Flow Rate FiO2 12/13/20 08:00 97 Nasal Cannula 1.50 12/13/20 07:24 36.2 68 20 151/84 (106) 12/11/20 21:59 21 Capillary Refill : Less Than 3 SecondsLess Than 3 Seconds General Appearance: No Apparent Distress, Obese Respiratory: No Respiratory Distress, Decreased Breath Sounds Cardiovascular: Regular Rate, Rhythm, No Edema, No Murmur Gastrointestinal: Normal Bowel Sounds, Non Tender, Soft Extremity: Normal Inspection, Non Tender, No Pedal Edema Neurologic/Psychiatric: Alert, Oriented x3, No Motor/Sensory Deficits, Normal Mood/Affect Skin: Normal Color, Warm/Dry Results/Procedures Lab Laboratory Tests 12/13/20 05:50 Patient resulted labs reviewed. Imaging: Reviewed Imaging Report Assessment/Plan Assessment and Plan Assess & Plan/Chief Complaint Acute respiratory failure due to COVID-19 COVID positive outpatient Received Bamlanivimab infusion 12/11 Chest xray with patchy infiltrates consistent with COVID Continue Decadron Continue Remdesivir Supplemental oxygen as needed, currently 1.5 L D-dimer mildly elevated, CT negative for PE Procalcitonin normal, no antibiotics Super obesity Clinically significant, no acute management needs DVT prophylaxis: Lovenox Hypokalemia, resolved Diagnosis/Problems Diagnosis/Problems (1) Acute respiratory failure due to COVID-19 Status: Acute (2) Super obesity Status: Chronic (3) Hypokalemia Status: Acute ANN FREEDMAN MD Dec 13, 2020 12:25
--- NOTE | 2020-12-13 15:54 | NUR ---
IV SITE CHANGED TO FA WITH A 22 GA. FLUSHING WELL. Addendum: 12/13/20 at 1555 by LITO BARRIOS RN Amended: Links added.
[2020-12-13 16:08] VITALS: BP 131/85
[2020-12-13] MEDS: MELATONIN 3 MG TABLET PO PRN (20:42)
[2020-12-13] MEDS: diphenhydrAMINE 25 MG TAB (BENADRYL) PO PRN (23:44)
[2020-12-14 00:56] VITALS: BP 158/78
[2020-12-14] MEDS: CATHETER FLUSH 10 ML SYR IV SCH ×3 (06:31→21:48)
[2020-12-14 06:32] LABS: ALBUMIN 3.9 GM/DL (3.2-4.5); CHLORIDE 107 MMOL/L (98-107); POTASSIUM 3.5 MMOL/L (3.6-5.0); SODIUM 140 MMOL/L (135-145)
[2020-12-14 06:33] LABS: CALCIUM 8.5 MG/DL (8.5-10.1)
[2020-12-14 06:35] LABS: GLUCOSE 109 MG/DL (70-105); TOTAL PROTEIN 7.4 GM/DL (6.4-8.2)
[2020-12-14 06:36] LABS: CARBON DIOXIDE 23 MMOL/L (21-32)
[2020-12-14 06:37] LABS: BILIRUBIN,TOTAL 0.4 MG/DL (0.1-1.0)
[2020-12-14 06:38] LABS: ALKALINE PHOSPHATASE 46 U/L (40-136); CREATININE SERUM 0.78 MG/DL (0.60-1.30); GFR ESTIMATED > 60
[2020-12-14] MEDS: inSUlin ASPART (NovoLOG) 1 UNIT/0.01 ML (CHARGE PER UNIT) SC SCH ×4 (06:38→20:34)
[2020-12-14] MEDS: POTASSIUM CL 10MEQ/50ML IVPB 50 ML IV SCH (06:38)
[2020-12-14 06:39] LABS: BUN/CREATININE RATIO 23
[2020-12-14 06:41] LABS: ALANINE AMINOTRANSFERASE 16 U/L (0-55)
[2020-12-14] MEDS: KCL 20 MEQ TAB (K-DUR) PO SCH (06:46)
[2020-12-14] MEDS: MAGNESIUM 1 GM/100 ML IVPB 100 ML IV SCH (07:51)
[2020-12-14 08:00] VITALS: BP 138/80
[2020-12-14] MEDS: ENOXAPARIN 60 MG/0.6 ML (LOVENOX) SYR SC SCH ×2 (09:01→20:30)
[2020-12-14] MEDS: dexAMETHasone 6 MG TAB (DECADRON) PO SCH (09:01)
[2020-12-14] MEDS: DOCUSATE SODIUM 100 MG (COLACE) CAP PO SCH ×2 (09:02→20:30)
[2020-12-14] MEDS: SENNOSIDES 8.6 MG (SENOKOT) TAB PO SCH ×2 (09:02→20:30)
[2020-12-14] MEDS: PANTOPRAZOLE 40 MG (PROTONIX) TAB PO SCH (09:02)
[2020-12-14] MEDS: REMDESIVIR INJ 100 MG in NS (IVPB) 230 ML IV SCH (12:29)
[2020-12-14] MEDS: ONDANSETRON 4 MG/2 ML (SDV) Z0FRAN IV PRN (12:30)
[2020-12-14] MEDS ORDERED: RT-ALBUINH INH (12:36)
[2020-12-14] MEDS ORDERED: PRD20T PO (12:36)
[2020-12-14] MEDS ORDERED: ACET325T38 PO (12:36)
--- NOTE | 2020-12-14 12:51 | NUR ---
I SPOKE WITH THE PATIENT ON THE ROOM PHONE AND WENT THROUGH THE EXTERNAL MED HISTORY TO COMPLETE THIS MED REC. OTC: TYLENOL
--- NOTE | 2020-12-14 13:13 | Progress Note - Hospitalist ---
Subjective HPI/CC On Admission Date Seen by Provider: Dec 14, 2020 Time Seen by Provider: 13:11 Susan Sullivan is a 35-year-old female with super obesity who presented with shortness of breath. Her symptoms began 10 days ago. She was diagnosed with COVID-19 as an outpatient. She received a Bamlanivimab infusion on the day of her arrival. After the infusion she was short of breath and presented to the emergency room. She reports that she has had a cough. She has not noticed any fevers. She has had some loss of taste and smell. She has still been eating and drinking. She has had some diarrhea. She reports nausea but no vomiting. She has a headache. She denies chest pain. She denies abdominal pain. She blanco not had any leg pain or swelling. Subjective/Events-last exam Pt reports feeling well just tired. No complaints. Still on oxygen. Objective Exam Vital Signs Vital Signs Date Time Temp Pulse Resp B/P (MAP) Pulse Ox O2 Delivery O2 Flow Rate FiO2 12/14/20 08:00 95 Nasal Cannula 1.00 12/14/20 08:00 36.0 75 18 138/80 (99) 12/11/20 21:59 21 Capillary Refill : Less Than 3 SecondsLess Than 3 Seconds General Appearance: No Apparent Distress, WD/WN Respiratory: Lungs Clear, No Respiratory Distress Cardiovascular: Regular Rate, Rhythm, No Murmur Neurologic/Psychiatric: Alert, Oriented x3 Results/Procedures Lab Laboratory Tests 12/14/20 05:49 Patient resulted labs reviewed. Imaging: Reviewed Imaging Report Assessment/Plan Assessment and Plan Assess & Plan/Chief Complaint Acute respiratory failure due to COVID-19 COVID positive outpatient Received Bamlanivimab infusion 12/11 Continue Decadron Continue Remdesivir Supplemental oxygen as needed, currently 1lpm D-dimer mildly elevated, CT negative for PE Procalcitonin normal x2, no antibiotics Super obesity Clinically significant, no acute management needs DVT prophylaxis: Lovenox Hypokalemia, resolved MAXIMILIANO LEON MD Dec 14, 2020 13:13
[2020-12-14 15:09] VITALS: BP 125/68
--- NOTE | 2020-12-14 19:48 | Discharge Inst-Simple/Standard ---
Discharge Inst-Standard Patient Instructions/Follow Up Plan of Care/Instructions/FU: Please continue to take your medications as written. Please follow up with your primary care doctor to follow up this hospital stay. Activity as Tolerated: Yes Discharge Diet: No Restrictions Return to The Hospital For: chest pain, shortness of breath, fever, confusion, if you feel you are getting worse. MAXIMILIANO LEON MD Dec 14, 2020 19:48
[2020-12-14] MEDS: MELATONIN 3 MG TABLET PO PRN (20:30)
[2020-12-14] MEDS: diphenhydrAMINE 25 MG TAB (BENADRYL) PO PRN (22:26)
[2020-12-14 23:28] VITALS: BP 144/75
[2020-12-15 03:05] VITALS: BP 110/59
[2020-12-15 04:47] LABS: ALBUMIN 3.6 GM/DL (3.2-4.5); CHLORIDE 107 MMOL/L (98-107); POTASSIUM 3.7 MMOL/L (3.6-5.0); SODIUM 139 MMOL/L (135-145)
[2020-12-15 04:49] LABS: CALCIUM 8.1 MG/DL (8.5-10.1)
[2020-12-15 04:50] LABS: GLUCOSE 111 MG/DL (70-105); TOTAL PROTEIN 6.8 GM/DL (6.4-8.2)
[2020-12-15 04:51] LABS: CARBON DIOXIDE 23 MMOL/L (21-32)
[2020-12-15 04:52] LABS: BILIRUBIN,TOTAL 0.3 MG/DL (0.1-1.0)
[2020-12-15 04:53] LABS: ALKALINE PHOSPHATASE 44 U/L (40-136); CREATININE SERUM 0.75 MG/DL (0.60-1.30); GFR ESTIMATED > 60
[2020-12-15 04:55] LABS: BUN/CREATININE RATIO 24
[2020-12-15 04:56] LABS: ALANINE AMINOTRANSFERASE 16 U/L (0-55); MAGNESIUM 2.3 MG/DL (1.6-2.4)
[2020-12-15] MEDS: POTASSIUM CL 10MEQ/50ML IVPB 50 ML IV SCH (05:52)
[2020-12-15] MEDS: KCL 20 MEQ TAB (K-DUR) PO SCH (05:52)
[2020-12-15] MEDS: CATHETER FLUSH 10 ML SYR IV SCH ×3 (05:52→21:24)
[2020-12-15] MEDS: MAGNESIUM 1 GM/100 ML IVPB 100 ML IV SCH (05:52)
[2020-12-15] MEDS: inSUlin ASPART (NovoLOG) 1 UNIT/0.01 ML (CHARGE PER UNIT) SC SCH ×4 (05:53→20:35)
[2020-12-15 07:30] VITALS: BP 131/79
--- NOTE | 2020-12-15 09:08 | Progress Note - Hospitalist ---
Subjective HPI/CC On Admission Date Seen by Provider: Dec 15, 2020 Time Seen by Provider: 09:04 Susan Sullivan is a 35-year-old female with super obesity who presented with shortness of breath. Her symptoms began 10 days ago. She was diagnosed with COVID-19 as an outpatient. She received a Bamlanivimab infusion on the day of her arrival. After the infusion she was short of breath and presented to the emergency room. She reports that she has had a cough. She has not noticed any fevers. She has had some loss of taste and smell. She has still been eating and drinking. She has had some diarrhea. She reports nausea but no vomiting. She has a headache. She denies chest pain. She denies abdominal pain. She blanco not had any leg pain or swelling. Subjective/Events-last exam Pt reports having a headache and that her stomach is upset. No SOB. Objective Exam Vital Signs Vital Signs Date Time Temp Pulse Resp B/P (MAP) Pulse Ox O2 Delivery O2 Flow Rate FiO2 12/15/20 03:05 35.8 56 18 110/59 (76) 97 Nasal Cannula 1.00 12/11/20 21:59 21 Capillary Refill : Less Than 3 SecondsLess Than 3 Seconds General Appearance: No Apparent Distress, WD/WN, Obese Respiratory: Lungs Clear, No Accessory Muscle Use Cardiovascular: Regular Rate, Rhythm, No Murmur Neurologic/Psychiatric: Alert, Oriented x3 Results/Procedures Lab Laboratory Tests 12/15/20 04:10 Patient resulted labs reviewed. Imaging: Reviewed Imaging Report Assessment/Plan Assessment and Plan Assess & Plan/Chief Complaint Acute respiratory failure due to COVID-19 COVID positive outpatient Received Bamlanivimab infusion 12/11 Continue Decadron Continue Remdesivir day 4/ today Supplemental oxygen as needed, currently 1lpm D-dimer mildly elevated, CT negative for PE Procalcitonin normal x2, no antibiotics Super obesity Clinically significant, no acute management needs DVT prophylaxis: Lovenox Hypokalemia, resolved MAXIMILIANO LEON MD Dec 15, 2020 09:08
[2020-12-15] MEDS: dexAMETHasone 6 MG TAB (DECADRON) PO SCH (09:15)
[2020-12-15] MEDS: PANTOPRAZOLE 40 MG (PROTONIX) TAB PO SCH (09:15)
[2020-12-15] MEDS: SENNOSIDES 8.6 MG (SENOKOT) TAB PO SCH ×2 (09:15→20:35)
[2020-12-15] MEDS: ENOXAPARIN 60 MG/0.6 ML (LOVENOX) SYR SC SCH ×2 (09:15→20:35)
[2020-12-15] MEDS ORDERED: CALCIUM CARBONATE 500 MG (TUMS) TAB.CHEW PO PRN (09:15)
[2020-12-15] MEDS: DOCUSATE SODIUM 100 MG (COLACE) CAP PO SCH ×2 (09:15→20:35)
[2020-12-15] MEDS: REMDESIVIR INJ 100 MG in NS (IVPB) 230 ML IV SCH (12:55)
[2020-12-15] MEDS: ACETAMINOPHEN 325 MG TABLET PO PRN (13:08)
[2020-12-15 15:16] VITALS: BP 131/79
--- NOTE | 2020-12-15 15:57 | NUR ---
"RD ASSESSMENT PMHx: GERD: PT INTERACTION: Received dietary consult for MST score. Note pt is currently in COVID isolation per chart review. Note all diet information for nutrition consult is per Karen RN or per chart review. Karen states current appetite appears fair. Note avg PO intake 47% x3d, per chart review. Karen states no issues with n/v/c/d that she is aware of. Note last BM was 12/14, and pt currently on bowel regimen of colace BID, and senna BID, per chart review. Note recent 19# wt gain x7mon, per chart review. Given wt hx and PO intake, pt does not meet criteria for malnutrition per ASPEN guidelines. Est. kcal needs: 4289-2811 kcal | 25-30 kcal/kg IBW, based on IBW of 61.4 kg (135#) Est. Pro needs: 49-61 g Pro | 0.8-1.0 g Pro/kg IBW PES STATEMENT: Inadequate oral intake (NI-2.1) related to loss of appetite, as evidenced by chart review, and avg PO intake 47% x3d. INTERVENTION: Continue with current diet order of Regular diet. Pt may benefit from nutrition supplementation if PO intake declines. Will continue to follow and reassess as pt needs, intake, and status change. Ezra COLLIER, MS RD LD [phone] cell"
[2020-12-15 16:00] VITALS: BP 127/77
[2020-12-15 17:05] VITALS: BP 127/77
[2020-12-15] MEDS: diphenhydrAMINE 25 MG TAB (BENADRYL) PO PRN (23:41)
[2020-12-16 00:02] VITALS: BP 152/78
[2020-12-16] MEDS: inSUlin ASPART (NovoLOG) 1 UNIT/0.01 ML (CHARGE PER UNIT) SC SCH ×2 (06:04→12:04)
[2020-12-16] MEDS: CATHETER FLUSH 10 ML SYR IV SCH (06:04)
[2020-12-16 06:05] LABS: ALBUMIN 3.6 GM/DL (3.2-4.5); CHLORIDE 106 MMOL/L (98-107); POTASSIUM 3.6 MMOL/L (3.6-5.0); SODIUM 138 MMOL/L (135-145)
[2020-12-16 06:06] LABS: CALCIUM 8.4 MG/DL (8.5-10.1)
[2020-12-16 06:07] LABS: GLUCOSE 94 MG/DL (70-105); TOTAL PROTEIN 6.7 GM/DL (6.4-8.2)
[2020-12-16] MEDS: POTASSIUM CL 10MEQ/50ML IVPB 50 ML IV SCH (06:07)
[2020-12-16 06:08] LABS: CARBON DIOXIDE 23 MMOL/L (21-32)
[2020-12-16 06:09] LABS: BILIRUBIN,TOTAL 0.3 MG/DL (0.1-1.0)
[2020-12-16 06:11] LABS: ALKALINE PHOSPHATASE 40 U/L (40-136); CREATININE SERUM 0.71 MG/DL (0.60-1.30); GFR ESTIMATED > 60
[2020-12-16] MEDS: KCL 20 MEQ TAB (K-DUR) PO SCH (06:11)
[2020-12-16 06:12] LABS: BUN/CREATININE RATIO 23
[2020-12-16 06:14] LABS: ALANINE AMINOTRANSFERASE 28 U/L (0-55); MAGNESIUM 2.3 MG/DL (1.6-2.4)
[2020-12-16] MEDS: MAGNESIUM 1 GM/100 ML IVPB 100 ML IV SCH (06:18)
[2020-12-16 08:00] VITALS: BP 119/75
[2020-12-16] MEDS: SENNOSIDES 8.6 MG (SENOKOT) TAB PO SCH (09:00)
[2020-12-16] MEDS: DOCUSATE SODIUM 100 MG (COLACE) CAP PO SCH (09:00)
--- NOTE | 2020-12-16 09:26 | NUR ---
CM/SS finalized discharge. Plan: Patient is discharging to home today self care. The patient is on room air and is not currently needing home oxygen. The patient reports that she will have transportation home. No further needs.
[2020-12-16] MEDS: PANTOPRAZOLE 40 MG (PROTONIX) TAB PO SCH (10:01)
[2020-12-16] MEDS: ENOXAPARIN 60 MG/0.6 ML (LOVENOX) SYR SC SCH (10:02)
[2020-12-16] MEDS: dexAMETHasone 6 MG TAB (DECADRON) PO SCH (10:02)
[2020-12-16] MEDS: REMDESIVIR INJ 100 MG in NS (IVPB) 230 ML IV SCH (11:09)
[2020-12-16 13:18] VITALS: BP 119/75
== END 2020-12-16 13:18 | disposition home or self-care (01) | DRG 177 ==
LOC: EDUNIT# 15:18 → ER 15:20 → 4TH 16:21
PROVIDERS: ADMIT Internal Medicine; ATTEND Internal Medicine
PROC: XW033E5 Introduction of Remdesivir Anti-infective into Peripheral Vein, Percutaneous Approach, New Technology Group 5 (ICD-10-PCS; principal; 2020-12-12)
DX: U07.1 COVID-19 (principal); J96.01 Acute respiratory failure with hypoxia; Z68.43 Body mass index [BMI] 50.0-59.9, adult; E66.01 Morbid (severe) obesity due to excess calories; E87.6 Hypokalemia; K21.9 Gastro-esophageal reflux disease without esophagitis; F90.9 Attention-deficit hyperactivity disorder, unspecified type; Z88.1 Allergy status to other antibiotic agents
CPT/HCPCS: 36415; 71045; 71275; 80053; 82962; 83735; 84145; 84703; 85025; 85379; 86141; 94664; 94760

== ENCOUNTER → 2020-12-11 | Outpatient (CLI) | payer BC ==
[~2020-12-11] VITALS: Ht 67 cm; Wt 154.5 kg
[~2020-12-11] MED LIST changes: +ACET325T38 PO; +BAMLANIVIMAB (NON FORM) 700 MG in NS (IVPB) 250 ML IV ONE; +EPINEPHrine INJECTION 1 MG/ML AMP IM PRN; +PRD20T PO; +RT-ALBUINH INH; +diphenhydrAMINE 50 MG/ML INJ (BENADRYL) IV PRN
[2020-12-11 12:10] VITALS: BP 155/95
[2020-12-11 12:15] VITALS: BP 137/82
[2020-12-11 14:02] VITALS: BP 141/76
== END ==
LOC: INFUSION 12:26
PROVIDERS: ATTEND Family Medicine
DX: U07.1 COVID-19 (principal)